=== PATIENT | female | born 1985 | race Hispanic/Latino ===

== ENCOUNTER 2019-07-11 11:10 | Emergency (ER) | payer SELFPAY ==
[~2019-07-11] VITALS: Ht 162.6 cm; Wt 149.2 kg
[~2019-07-11 11:10] MED LIST: BIOTIN1 MG; FOLIC ACID1 MG PO; NEXIUM40 MG PO
[2019-07-11] MEDS ORDERED: CIPROFLOXACIN 500 MG TAB PO ONE (12:00)
[2019-07-11] MEDS ORDERED: PHENAZOPYRIDINE HCL 100 MG TAB PO ONE (12:00)
[2019-07-11 13:03] LABS: CLARITY,URINE CLOUDY (CLEAR); COLOR,URINE RED (YELLOW)
[2019-07-11 13:04] LABS: LEUKOCYTE ESTERASE ,URINE TRACE (NEGATIVE); NITRITE,URINE NEGATIVE (NEGATIVE)
[2019-07-11 13:05] LABS: BILIRUBIN,URINE NEGATIVE (NEGATIVE); KETONES,URINE NEGATIVE (NEGATIVE); PROTEIN,URINE DIPSTICK 1+ (NEGATIVE); URINE UROBILINOGEN 0.2 mg/dL (0.2 - 1)
[2019-07-11 13:14] LABS: EPITHELIAL CELLS,URINE FEW /LPF; RBC,URINE >50 /HPF (0-5); WBC,URINE (MAN) 0-5 /HPF (0-5)
[2019-07-11 13:18] LABS: BACTERIA,URINE MODERATE /HPF
[2019-07-11 13:28] VITALS: BP 136/91
== END 2019-07-11 13:35 | disposition home or self-care (01) ==
LOC: ER 11:10
DX: R30.0 Dysuria (principal); N30.91 Cystitis, unspecified with hematuria
CPT/HCPCS: 36415; 81001; 82948; 87086; 99283